=== PATIENT | male | born 1980 | race Caucasian/White ===

== ENCOUNTER → 2018-10-06 19:06 | Emergency (ER) | payer OTHER ==
[~2018-10-06 19:06] MED LIST: DOXYcycline CAP(*) 100 MG PO ONE
[2018-10-06 19:46] VITALS: BP 133/90
--- NOTE | 2018-10-06 20:51 | UC ---
Throat Pain/Nasal Tavon HPI - HPI Summary HPI Summary: 37 y/o male presents to the urgent care c/o sore throat, THAO, body aches, low grade fever, nasal congestion w/ yellowish nasal discharge for the past week. He is concerned since her girlfriend's daughter was recently Dx w/ Hand foot mouth disease. He has taken Tylenol PO to alleviate symptoms. Pt has PMHX of Cronhs disease. Pain is 5/10 w/ swallowing. Pt denies SOB, wheezing, cough, chest pain, abdominal pain, N/V/D. - History of Current Complaint Chief Complaint: UCGeneralIllness Stated Complaint: NAUSEA, AND ACHES Time Seen by Provider: 10/06/18 20:16 Hx Obtained From: Patient Onset/Duration: Gradual Onset, Lasting Weeks - 1 week, Still Present, Worse Since - yesterday Severity: Moderate Pain Intensity: 5 Pain Scale Used: 0-10 Numeric Cough: None Associated Signs & Symptoms: Positive: Dysphagia, Sinus Discomfort, Nasal Discharge - yellowish, Fever - Epiglottits Risk Factors Epiglottis Risk Factors: Negative - Allergies/Home Medications Allergies/Adverse Reactions: Allergies Allergy/AdvReac Type Severity Reaction Status Date / Time amoxicillin Allergy Shortness Verified 10/06/18 19:33 of Breath Home Medications: Home Medications Acetaminophen [Acetaminophen Extra Strength] 1,000 mg PO ONCE 10/06/18 [History Confirmed 10/06/18] Adalimumab [Humira] 40 mg SQ 10/06/18 [History] Chlorpheniramine/Dextromethorp [Coricidin Hbp Cough & Cold Tab] 1 tab PO ONCE [History Confirmed 10/06/18] Escitalopram Oxalate [Lexapro] 20 mg PO DAILY 10/06/18 [History Confirmed ] Lisinopril TAB* [Prinivil TAB 10 MG*] 10 mg PO DAILY 10/06/18 [History Confirmed 10/06/18] Mercaptopurine TAB* [Purinethol TAB*] 100 mg PO DAILY 10/06/18 [History Confirmed 10/06/18] Methylphenidate ER TAB* [Concerta ER TAB*] 18 mg PO DAILY 10/06/18 [History Confirmed 10/06/18] PMH/Surg Hx/FS Hx/Imm Hx Previously Healthy: Yes Other GI/ History: Crohn's disease - Surgical History Surgical History: None - Family History Known Family History: Positive: Hypertension - Social History Occupation: Employed Full-time Lives: With Family Alcohol Use: Rare Substance Use Type: None Smoking Status (MU): Never Smoked Tobacco Review of Systems All Other Systems Reviewed And Are Negative: Yes Constitutional: Positive: Fever Skin: Positive: Negative Eyes: Positive: Negative ENT: Positive: Sore Throat, Nasal Discharge - yellowish, Sinus Congestion, Sinus Pain/Tenderness Respiratory: Positive: Negative Cardiovascular: Positive: Negative Gastrointestinal: Positive: Negative Genitourinary: Positive: Negative Motor: Positive: Negative Neurovascular: Positive: Negative Musculoskeletal: Positive: Negative Neurological: Positive: Headache Psychological: Positive: Negative Is Patient Immunocompromised?: No Physical Exam - Summary Physical Exam Summary: Vitals: reviewed General: Well developed, well-nourished male patient with NAD. Head and face: Normocephalic and atraumatic, Positive tenderness over the frontal and maxillary sinuses.. Eyes: PERRLA, EOMI x 2. Normal conjunctiva. No eye discharge. ENT: Ears and TM with normal limits. Nose: edematous and erythematous nasal mucosa with with yellowish discharge and erythematous mucosa. Pharynx with erythema, no exudate. +yellowish PND Neck: Supple, no JVD, no carotid bruits and no lymphadenopathy. Lungs: clear, no rales, no rhonchi, no wheezes. CVS: RRR, S1 and S2 present no murmurs or gallops appreciated. Abdomen: soft nontender with positive bowel sounds. Extremities: no edema noted. Neuro: WNL. Skin: warm and dry Triage Information Reviewed: Yes Vital Signs: Initial Vital Signs Temp 97.7 F 10/06/18 19:40 Pulse 62 10/06/18 19:40 Resp 16 10/06/18 19:40 BP 133/90 10/06/18 19:40 Pulse Ox 99 10/06/18 19:40 Throat Pain/Nasal Course/Dx - Course Course Of Treatment: 37 y/o male presents to the urgent care c/o sore throat, THAO , body aches, low grade fever, nasal congestion w/ yellowish nasal discharge for the past week. He is concerned since her girlfriend's daughter was recently Dx w/ Hand foot mouth disease. He has taken Tylenol PO to alleviate symptoms. Pt has PMHX of Cronhs disease. Pain is 5/10 w/ swallowing. Pt denies SOB, wheezing, cough, chest pain, abdominal pain, N/V/D. Hx obtained.Pt with 1 week of symptoms getting worse.Pt w/ aute bacterial sinusistis on examination. Pt PCN allergic. PT Rx Doxycycline PO and flonase nasal spray. Discharge instructions explained to Pt. Also Advised to Return to the clinic or PCP if symptoms do not improve.Pt's BP is elevated today advised to decrease salt in diet, monitor BP and f/u with PCP for further management. Pt understood and agreed with plan of care. - Differential Dx/Diagnosis Differential Diagnosis/HQI/PQRI: Influenza, Laryngitis, Otitis Media, Pharyngitis, Sinusitis, Tonsillitis Provider Diagnoses: 1- Acute bacterial sinusitis. 2- Uncontrolled HTN Discharge - Sign-Out/Discharge Documenting (check all that apply): Patient Departure - d/c home All imaging exams completed and their final reports reviewed: No Studies - Discharge Plan Condition: Stable Disposition: HOME Prescriptions: DOXYcycline CAP(*) [DOXYcycline 100MG CAP(*)] 100 mg PO BID #19 cap Fluticasone NASAL SPRAY 50MCG* [Flonase NASAL SPRAY 50MCG*] 2 spray BOTH NARES DAILY #1 btl Patient Education Materials: Sinusitis (ED), Low-Sodium Diet (ED) Referrals: [facility] [place] [facility] [place]] - 3 Days Additional Instructions: 1- Please increase fluid intake and rest. take full course of antibiotic to avoid resistance. first dose given tonight 2-Use Flonase as directed to help drain fluid. Also buy saline drops to clear sinuses 3-Return to the clinic or PCP in 3 days if symptoms do not improve for further management and treatment 4-Your BP is elevated today. please decrease salt in your diet, monitor BP and if it continues to be elevated please f/u with your PCP for further management - Billing Disposition and Condition Condition: STABLE Disposition: Home
== END | disposition home or self-care (01) ==
LOC: UCEAST 19:06
DX: J01.90 Acute sinusitis, unspecified (principal); I10 Essential (primary) hypertension; Z88.0 Allergy status to penicillin
CPT/HCPCS: 99202; A9270-GY; G0463